=== PATIENT | male | born 1940 | race Caucasian/White ===

== ENCOUNTER 2024-01-04 18:54 | Emergency (ER) | payer MEDICARE, BC ==
[~2024-01-04] VITALS: Ht 172.7 cm; Wt 63.0 kg
[2024-01-04] MEDS: HYDROmorphone 1 mg/ml syringe IV ONE ×2 (19:38→23:42)
[2024-01-04 19:41] LABS: BASOPHILS # (AUTO) 0.1 X10'3 (0-0.2); BASOPHILS % (AUTO) 0.4 % (0-1); EOSINOPHILS # (AUTO) 0.3 X10'3 (0-0.9); EOSINOPHILS % (AUTO) 1.4 % (0-6); HEMATOCRIT 37.3 % (42.0-52.0); HEMOGLOBIN 12.2 g/dl (14.0-17.9); LYMPHOCYTES % (AUTO) 9.8 % (21-51); MEAN CORPUSCULAR HEMOGLOBIN 29.2 PG (27.0-31.0); MEAN CORPUSCULAR HGB CONC 32.7 g/dL (33.0-36.5); MEAN CORPUSCULAR VOLUME 89.2 FL (78-98); MEAN PLATELET VOLUME 8.1 FL (7.4-10.4); MONOCYTES # (AUTO) 1.4 X10'3 (0-0.9); MONOCYTES % (AUTO) 6.9 % (2-12); NEUTROPHILS # (AUTO) 16.2 X10'3 (1.8-7.7); NEUTROPHILS % (AUTO) 81.5 % (42-75); PLATELET COUNT 209 X10'3 (140-440); RED BLOOD COUNT 4.18 X10'6 (4.70-6.10); RED CELL DISTRIBUTION WIDTH 12.8 % (11.5-14.5); WHITE BLOOD COUNT 19.9 X10'3 (4.5-11.0)
[2024-01-04 19:42] VITALS: TEMP 98.2
[2024-01-04 20:03] LABS: ALANINE AMINOTRANSFERASE 62 U/L (12-78); ALBUMIN/GLOBULIN RATIO 0.7 (1.1-1.5); ALKALINE PHOSPHATASE 241 IU/L (46-116); ANION GAP 8 (8-16); ASPARTATE AMINO TRANSFERASE 49 U/L (10-37); BILIRUBIN,TOTAL 0.4 MG/DL (0.1-1.0); BLOOD UREA NITROGEN 20 MG/DL (7-18); CALCIUM 9.5 MG/DL (8.5-10.1); CHLORIDE 96 MMOL/L (99-107); CREATININE 0.91 MG/DL (0.60-1.10); GLUCOSE 153 MG/DL (70-104); LIPASE 63 U/L (16-77); POTASSIUM 3.6 MMOL/L (3.5-5.1); SODIUM 132 MMOL/L (135-145); TOTAL PROTEIN 7.5 G/DL (6.4-8.2); eCRCL 56 ML/MIN; eGFR 80 ML/MIN
[2024-01-04] MEDS: normal saline 1000ml 1,000 ML IV ONE (20:15)
[2024-01-04] MEDS ORDERED: iohexol 300mg/ml 100ml inj. ONE (21:09)
[2024-01-04] MEDS ORDERED: heparin 25,000 UNIT/250ml bag 250 ML IV PRN (23:50)
[2024-01-04] MEDS ORDERED: heparin 10,000 units/1 ML INJ IV ONE (23:50)
[2024-01-04] MEDS ORDERED: heparin 10,000 units/1 ML INJ IV PRN (23:50)
[2024-01-05] MEDS ORDERED: heparin 10,000 units/1 ML INJ IV ONE (00:05)
[2024-01-05] MEDS: apixaban 5mg tablet PO SCH (01:01)
[2024-01-05] MEDS: HYDROmorphone 1 mg/ml syringe IV ONE ×3 (01:08→06:47)
[2024-01-05] MEDS ORDERED: ONDA-243 PO (02:59)
[2024-01-05] MEDS ORDERED: NALO4SPR BOTHNARES (02:59)
[2024-01-05] MEDS ORDERED: HYDR2TAB28 PO (02:59)
[2024-01-05] MEDS ORDERED: APIX5TAB3 PO ×2 (03:58)
[2024-01-05 08:30] VITALS: BP 124/76; PULSE 92; RESP 23; O2SAT 95
== END 2024-01-05 08:45 | disposition home or self-care (01) ==
LOC: ER 18:54
DX: R10.13 Epigastric pain (principal); K86.89 Other specified diseases of pancreas; I81 Portal vein thrombosis
CPT/HCPCS: 36415; 71045; 74178; 80053; 83690; 85025; 96361; 96374; 96376; 99285; A4615; J1170; J7030; Q9967

== ENCOUNTER 2024-01-10 09:14 | Day surgery (SDC) | payer MEDICARE, BC ==
[~2024-01-10] VITALS: Ht 170.2 cm; Wt 66.2 kg
[~2024-01-10 09:14] MED LIST: APIX5TAB3 PO; HYDR2TAB28 PO; NALO4SPR BOTHNARES; ONDA-243 PO
[2024-01-10] MEDS ORDERED: XAL0.005OS EACHEYE (10:22)
[2024-01-10] MEDS ORDERED: ROSU20TA73 PO (10:22)
[2024-01-10] MEDS ORDERED: ESZO2TAB31 PO (10:22)
[2024-01-10] MEDS ORDERED: PANT40TA54 PO (10:22)
[2024-01-10] MEDS ORDERED: NAPR-996 PO (10:22)
[2024-01-10] MEDS ORDERED: BRIN15DR4 EACHEYE (10:22)
[2024-01-10] MEDS ORDERED: HYDR-3964 PO (10:22)
[2024-01-10] MEDS ORDERED: BRIM5DRO2 EACHEYE (10:22)
[2024-01-10 10:33] VITALS: BP 133/96; PULSE 96; RESP 16; TEMP 97.5
[2024-01-10] MEDS ORDERED: midazolam 1 mg/ML 2ml injection ONE (11:35)
[2024-01-10] MEDS ORDERED: fentaNYL/PF 50MCG/1 ML 2ML syringe ONE (11:35)
[2024-01-10] MEDS ORDERED: simethicone 40mg/0.6ml oral drops 30ml ONE (11:35)
[2024-01-10 11:50] VITALS: BP 135/78; PULSE 78; RESP 12; O2SAT 100
[2024-01-10 12:00] VITALS: BP 134/79; PULSE 82; RESP 16; O2SAT 97
[2024-01-10 12:10] VITALS: BP 142/83; PULSE 81; RESP 18; O2SAT 97
[2024-01-10 12:20] VITALS: BP 139/78; PULSE 81; RESP 12; O2SAT 97
== END 2024-01-10 12:35 | disposition home or self-care (01) ==
LOC: GI LAB 09:14
PROVIDERS: ATTEND Internal Medicine Gastroenterology
DX: K30 Functional dyspepsia (principal); K21.00 Gastro-esophageal reflux disease with esophagitis, without bleeding; K29.51 Unspecified chronic gastritis with bleeding; K29.80 Duodenitis without bleeding
CPT/HCPCS: 43239; A4620; J2250; J3010; J7030; Z7512